=== PATIENT | male | born 1960 | race African-American/Black ===

== ENCOUNTER 2017-03-07 03:48 | Emergency (ER) | payer MEDICAID ==
[~2017-03-07] VITALS: Ht 182.9 cm; Wt 87.0 kg
[2017-03-07] MEDS ORDERED: KETOROLAC 60MG/2ML VIAL IM ONE (06:15)
[2017-03-07 09:13] VITALS: BP 110/82
== END 2017-03-07 09:16 | disposition home or self-care (01) ==
LOC: ER 03:48
DX: S42.294A Other nondisplaced fracture of upper end of right humerus, initial encounter for closed fracture (principal); F17.210 Nicotine dependence, cigarettes, uncomplicated; V43.62XA Car passenger injured in collision with other type car in traffic accident, initial encounter; Y93.89 Activity, other specified; Y92.488 Other paved roadways as the place of occurrence of the external cause
CPT/HCPCS: 73030; 96372; 99284; J1885; A4565